=== PATIENT | female | born 1960 | race Caucasian/White ===

== ENCOUNTER → 2016-10-26 | Outpatient (CLI) | payer OTHER ==
--- NOTE | 2016-10-26 14:09 | RADIOLOGY REPORT (SQ) ---
EXAM DESCRIPTION: CT BONE LENGTH COMPLETED DATE/TIME: 10/26/2016 1:46 pm REASON FOR STUDY: LLD (Q72.819) Q72.819 CONGENITAL SHORTENING OF UNSPECIFIED LOWER LIMB COMPARISON: None. TECHNIQUE: CT scanogram of the bilateral lower extremities is performed including pelvis to ankles. Measurements of femur, tibia, and entire lower extremities performed by the radiologist and saved to PACS. All CT scanners at this facility use dose modulation, iterative reconstruction, and/or weight based d osing when appropriate to reduce radiation dose to as low as reasonably achievable (ALARA). [facility]: Dose Right [facility]: CareDose [facility]: Dose Right [facility]: Teradose 4D [facility]: Tumblr RADIATION DOSE: mGy. LIMITATIONS: None. FINDINGS: RIGHT: FEMUR: 40.8 cm. TIBIA: 33.4 cm. TOTAL RIGHT LOWER EXTREMITY LENGTH: 74.2 cm. LEFT: FEMUR: 42 cm. TIBIA: 33.3 cm. TOTAL LEFT LOWER EXTREMITY LENGTH: 75.3 cm. IMPRESSION: LEG LENGTH MEASUREMENTS DETAILED ABOVE. TECHNICAL DOCUMENTATION: JOB ID: [id number] Quality ID # [id number]: Final reports with documentation of one or more dose reduction techniques (e.g., Au tomated exposure control, adjustment of the mA and/or kV according to patient size, use of iterative reconstruction technique) 2010 [employer]- All Rights Reserved
== END ==
LOC: RAD 13:09
PROVIDERS: ATTEND Podiatrist Foot & Ankle Surgery
DX: Q72.819 Congenital shortening of unspecified lower limb (principal)
CPT/HCPCS: 77073

== ENCOUNTER → 2018-01-21 | Outpatient (CLI) | payer OTHER ==
--- NOTE | 2018-01-21 13:41 | RADIOLOGY REPORT (SQ) ---
EXAM DESCRIPTION: CT ABDOMEN ORAL CONTRAST ONLY COMPLETED DATE/TIME: 01/21/2018 11:52 am REASON FOR STUDY: INCISIONAL HERNIA WITHOUT OBSTRUCTION OR GANGRENE K43.2 INCISIONAL HERNIA WITHOUT OBSTRUCTION OR GANGRENE COMPARISON: 11/15/2015 TECHNIQUE: CT scan of the abdomen performed without intravenous contrast and with oral contrast. Im ages reviewed with lung, soft tissue, and bone windows. Reconstructed coronal and sagittal MPR image s reviewed. All images stored on PACS. All CT scanners at this facility use dose modulation, iterative reconstruction, and/or weight based d osing when appropriate to reduce radiation dose to as low as reasonably achievable (ALARA). [facility]: Dose Right [facility]: CareDose [facility]: Dose Right [facility]: Teradose 4D [facility]: Smart TASS RADIATION DOSE: CT Rad equipment meets quality standard of care and radiation dose reduction techniq ues were employed. CTDIvol: 24.2 mGy. DLP: 858 mGy-cm.mGy. LIMITATIONS: None. FINDINGS: LOWER CHEST: No significant findings. No nodules or infiltrates. NONCONTRASTED LIVER, SPLEEN, ADRENALS: Evaluation limited by lack of IV contrast. No identified sign ificant masses. PANCREAS: The pancreas is fatty replaced and atrophic. This is stable from prior study. GALLBLADDER: Surgically absent. RIGHT KIDNEY AND URETER: No suspicious masses. Assessment limited by lack of IV contrast. No signif icant calcifications. No hydronephrosis or hydroureter. LEFT KIDNEY AND URETER: No suspicious masses. Assessment limited by lack of IV contrast. No signifi cant calcifications. No hydronephrosis or hydroureter. AORTA AND RETROPERITONEUM: No aneurysm. No retroperitoneal masses or adenopathy. BOWEL AND PERITONEAL CAVITY: No obvious masses or inflammatory changes. No free fluid. APPENDIX: Normal. ABDOMINAL WALL: No abdominal wall hernias. BONES: No significant findings. OTHER: No other significant finding. IMPRESSION: NO SIGNIFICANT OR ACUTE ABDOMINAL PROCESS. TECHNICAL DOCUMENTATION: JOB ID: [id number] Quality ID # [id number]: Final reports with documentation of one or more dose reduction techniques (e.g., Au tomated exposure control, adjustment of the mA and/or kV according to patient size, use of iterative reconstruction technique) 2010 [employer]- All Rights Reserved Reading location - IP/workstation name: [email or web address]
== END ==
LOC: RAD 11:32
PROVIDERS: ATTEND Physician Assistant
DX: K43.2 Incisional hernia without obstruction or gangrene (principal)
CPT/HCPCS: 74150

== ENCOUNTER 2019-02-24 12:51 | Emergency (ER) | payer OTHER ==
[2019-02-24 13:17] VITALS: BP 155/103
[2019-02-24] MEDS ORDERED: MORPHINE SULFATE 10 MG/ML INJ IV ONE (13:17)
[2019-02-24] MEDS ORDERED: ONDANSETRON HCL INJ/PF 4 MG/2 ML SDV IV ONE (13:17)
[2019-02-24] MEDS ORDERED: NORMAL SALINE 1000 ML 1,000 ML IV ONE (13:17)
--- NOTE | 2019-02-24 13:20 | ER Document Report ---
ED Medical Screen (RME) - General Chief Complaint: Abdominal Pain Stated Complaint: ABDOMINAL PAIN Time Seen by Provider: 02/24/19 13:09 Primary Care Provider: MILAN HAQ DPM [Primary Care Provider] - Follow up as needed Notes: Patient is a 58-year-old female who presents emergency department with a chief complaint of abdominal pain. Her symptoms started about 3 days ago. She states that it comes in waves and feels like it is a twisting sensation. The pain is at her umbilicus area. Patient states that she feels like she has had a low- grade fever. Patient has had some vomiting and a small amount of diarrhea. Patient has history of hernia surgeries in the past. She also states that she has had multiple adhesions. Patient is a diabetic. Exam: Very tender mid abdomen. I have greeted and performed a rapid initial assessment of this patient. A comprehensive ED assessment and evaluation of the patient, analysis of test results and completion of medical decision making process will be conducted by an additional ED providers. TRAVEL OUTSIDE OF THE [place] IN LAST 30 DAYS: No - Related Data Allergies/Adverse Reactions: adhesive [Adhesive] Allergy (Verified 02/24/19 12:57) doxycycline [Doxycycline] Allergy (Verified 02/24/19 12:57) hydromorphone HCl [From Dilaudid] Allergy (Verified 02/24/19 12:57) latex [Latex] Allergy (Verified 02/24/19 12:57) vancomycin [Vancomycin] Allergy (Verified 02/24/19 12:57) Past Medical History Pulmonary Medical History: Reports: Hx Pneumonia Endocrine Medical History: Reports: Hx Diabetes Mellitus Type 2 Renal/ Medical History: Reports: Hx Ectopic , Hx Ovarian Cysts Malignancy Medical History: Reports: Hx Cervical Cancer GI Medical History: Reports: Hx Gastritis, Hx Gastroesophageal Reflux Disease, Hx Hiatal Hernia, Hx Colonoscopy, Hx Endoscopy Musculoskeltal Medical History: Reports Hx Musculoskeletal Deformity, Reports Hx Musculoskeletal Trauma Traumatic Medical History: Reports: Hx Fractures Past Surgical History: Reports: Hx Abdominal Surgery - , Hx Adenoidectomy, Hx Appendectomy - 1992, Hx Bowel Surgery, Hx Section, Hx Cholecystectomy - 2010, Hx Gynecologic Surgery - ovarian cyst removed, Hx Herniorrhaphy - Pt has had multiple hernias, Hx Hysterectomy, Hx Orthopedic Surgery - lttorn rotator cuff repair, ligament tear right elbow, Hx Tubal Ligation - Immunizations Immunizations up to date: Yes Hx Diphtheria, Pertussis, Tetanus Vaccination: Yes Physical Exam - Vital signs Vitals: Temp Pulse Resp BP Pulse Ox 97.5 F 92 18 155/103 H 100 02/24/19 13:13 02/24/19 13:13 02/24/19 13:13 02/24/19 13:13 02/24/19 13:13 Course - Vital Signs Vital signs: Temp Pulse Resp BP Pulse Ox 97.5 F 92 18 155/103 H 100 02/24/19 13:13 02/24/19 13:13 02/24/19 13:13 02/24/19 13:13 02/24/19 13:13 Doctor's Discharge - Discharge Referrals: MILAN HAQ DPM [Primary Care Provider] - Follow up as needed
[2019-02-24 14:05] LABS: APPEARANCE,URINE CLEAR; BILIRUBIN,URINE NEGATIVE (NEGATIVE); COLOR,URINE YELLOW; GLUCOSE, URINE NEGATIVE (NEGATIVE); KETONES,URINE NEGATIVE (NEGATIVE); PROTEIN,URINE 100 mg/dL (NEGATIVE); URINE SPECIFIC GRAVITY 1.017; UROBILINOGEN,URINE NEGATIVE mg/dL (<2.0)
[2019-02-24 14:11] LABS: ABSOLUTE EOSINOPHILS # (AUTO) 0.4 10^3/uL (0.0-0.6); ABSOLUTE LYMPHOCYTES (AUTO) 2.7 10^3/uL (0.5-4.7); ABSOLUTE MONOCYTES (AUTO) 0.5 10^3/uL (0.1-1.4); ABSOLUTE NEUT (AUTO) 8.4 10^3/uL (1.7-8.2); BASOPHILS % (AUTO) 0.4 % (0-2); EOSINOPHILS % (AUTO) 3.3 % (0-6); HEMATOCRIT 37.5 % (36.0-47.0); HEMOGLOBIN 12.4 g/dL (12.0-15.5); LYMPHOCYTES % (AUTO) 22.3 % (13-45); MEAN CORPUSCULAR HEMOGLOBIN 26.2 pg (27.0-33.4); MEAN CORPUSCULAR HGB CONC 33.2 g/dL (32.0-36.0); MEAN CORPUSCULAR VOLUME 79 fl (80-97); MONOCYTES % (AUTO) 4.3 % (3-13); PLATELET COUNT 248 10^3/uL (150-450); RED BLOOD COUNT 4.75 10^6/uL (3.72-5.28); RED CELL DISTRIBUTION WIDTH 16.7 % (11.5-14.0); SEGMENTED NEUTROPHILS % (AUTO) 69.7 % (42-78); TOTAL CELLS COUNTED % (AUTO) 100 %
--- NOTE | 2019-02-24 14:12 | ER Document Report ---
ED GI/ - General Chief Complaint: Abdominal Pain Stated Complaint: ABDOMINAL PAIN Time Seen by Provider: 02/24/19 13:09 Primary Care Provider: MILAN HAQ DPM [Primary Care Provider] - Follow up as needed Information source: Patient Notes: Ms. Mackey is a 68 yo F w/ PMH diabetes and 26 abdominal surgeries in the past 10 of which were for hernia repairs with previous mesh implantation, partial colectomy and previous wound VAC presenting to the ED for abdominal pain. Patient states the pain began 3 days ago she has had ongoing episodes of vomiting at least 5 episodes. Vomitus has been nonbloody nonbilious. She also endorses small episodes of defecation, last one being this morning. She is passing gas without issues. States the pain is periumbilical and along her midline incision. She denies any fevers or chills, chest pain, cough or shortness of breath she also endorses decreased p.o. intake and dry heaving with water. TRAVEL OUTSIDE OF THE [place] IN LAST 30 DAYS: No - Related Data Allergies/Adverse Reactions: adhesive [Adhesive] Allergy (Verified 02/24/19 12:57) doxycycline [Doxycycline] Allergy (Verified 02/24/19 12:57) hydromorphone HCl [From Dilaudid] Allergy (Verified 02/24/19 12:57) latex [Latex] Allergy (Verified 02/24/19 12:57) vancomycin [Vancomycin] Allergy (Verified 02/24/19 12:57) Past Medical History - Social History Smoking Status: Former Smoker Family History: Arthritis, CAD, CVA, DM, Hyperlipidemia, Hypertension, Malignancy, Thyroid Disfunction Patient has suicidal ideation: No Patient has homicidal ideation: No Pulmonary Medical History: Reports: Hx Pneumonia Endocrine Medical History: Reports: Hx Diabetes Mellitus Type 2 Renal/ Medical History: Reports: Hx Ectopic , Hx Ovarian Cysts Malignancy Medical History: Reports: Hx Cervical Cancer GI Medical History: Reports: Hx Gastritis, Hx Gastroesophageal Reflux Disease, Hx Hiatal Hernia, Hx Colonoscopy, Hx Endoscopy Musculoskeletal Medical History: Reports Hx Musculoskeletal Deformity, Reports Hx Musculoskeletal Trauma Traumatic Medical History: Reports: Hx Fractures Past Surgical History: Reports: Hx Abdominal Surgery - , Hx Adenoidectomy, Hx Appendectomy - 1992, Hx Bowel Surgery, Hx Section, Hx Cholecystectomy - 2010, Hx Gynecologic Surgery - ovarian cyst removed, Hx Herniorrhaphy - Pt has had multiple hernias, Hx Hysterectomy, Hx Orthopedic Surgery - lttorn rotator cuff repair, ligament tear right elbow, Hx Tubal Ligation - Immunizations Immunizations up to date: Yes Hx Diphtheria, Pertussis, Tetanus Vaccination: Yes Review of Systems - Review of Systems Constitutional: See HPI EENT: No symptoms reported Cardiovascular: No symptoms reported Respiratory: No symptoms reported Gastrointestinal: See HPI Genitourinary: No symptoms reported Female Genitourinary: No symptoms reported Musculoskeletal: No symptoms reported Skin: No symptoms reported Hematologic/Lymphatic: No symptoms reported Neurological/Psychological: No symptoms reported Physical Exam - Vital signs Vitals: Temp Pulse Resp BP Pulse Ox 97.5 F 92 18 155/103 H 100 02/24/19 13:13 02/24/19 13:13 02/24/19 13:13 02/24/19 13:13 02/24/19 13:13 Interpretation: Hypertensive - General General appearance: Appears well, Alert - HEENT Head: Normocephalic, Atraumatic Eyes: Normal Pupils: PERRL - Respiratory Respiratory status: No respiratory distress Chest status: Nontender Breath sounds: Normal Chest palpation: Normal - Cardiovascular Rhythm: Regular Heart sounds: Normal auscultation Murmur: No - Abdominal Inspection: Normal Distension: No distension Bowel sounds: Normal Tenderness: Tender - Diffuse Organomegaly: No organomegaly - Back Back: Normal, Nontender - Extremities General upper extremity: Normal inspection, Nontender, Normal color, Normal ROM, Normal temperature General lower extremity: Normal inspection, Nontender, Normal color, Normal ROM, Normal temperature, Normal weight bearing. No: Shasha's sign - Neurological Neuro grossly intact: Yes Cognition: Normal Orientation: AAOx4 [place] Coma Scale Eye Opening: Spontaneous [place] Coma Scale Verbal: Oriented Mika Coma Scale Motor: Obeys Commands [place] Coma Scale Total: 15 Speech: Normal Motor strength normal: LUE, RUE, LLE, RLE Sensory: Normal - Psychological Associated symptoms: Normal affect, Normal mood - Skin Skin Temperature: Warm Skin Moisture: Dry Skin Color: Normal Course - Re-evaluation Re-evalutation: Patient is generally well-appearing and nontoxic. Initial vitals notable for elevated blood pressure. Differential diagnosis includes diverticulitis, diverticulosis, bowel obstruction, obstipation, constipation, ventral hernia 02/24/19 14:00 Given patient's extensive abdominal surgical history high risk for obstruction. Labs notable for mild leukocytosis without significant left shift. UA and CMP within normal limits. 02/24/19 17:34 Patient for any acute significant process. There is mild diverticulosis. There is an anterior dilated loop of bowel which is consistent with patient having a known ventral hernia. There is complete fatty replacement of the pancreas although pancreatic enzymes within normal limits. Given return precautions and instructed to follow-up with her primary care doctor as needed. - Vital Signs Vital signs: Temp Pulse Resp BP Pulse Ox 97.5 F 92 18 155/103 H 100 02/24/19 13:13 02/24/19 13:13 02/24/19 13:13 02/24/19 13:13 02/24/19 13:13 - Laboratory Result Diagrams: 02/24/19 14:00 02/24/19 14:00 Laboratory results interpreted by me: 02/24/19 02/24/19 02/24/19 13:26 14:00 14:00 WBC 12.0 H MCV 79 L MCH 26.2 L RDW 16.7 H Absolute Neuts (auto) 8.4 H Glucose 165 H POC Glucose AST 41 H Lipase 16.1 L Urine Protein 100 H 02/24/19 18:38 WBC MCV MCH RDW Absolute Neuts (auto) Glucose POC Glucose 118 H AST Lipase Urine Protein Discharge - Discharge Clinical Impression: Abdominal pain Condition: Good Disposition: HOME, SELF-CARE Instructions: Abdominal Pain ([facility]), Antispasmodics ([facility]) Additional Instructions: I would recommend that you stick to a liquid and bland food diet. Follow-up with your primary care doctor as needed. If you are having incomplete bowel movements, I do recommend to use a senna plus. You can also use the Bentyl for pain control. If you are unable to keep down food or drink, develop a fever, or any other concerning symptoms, you can return to the ED for further evaluation. Prescriptions: Dicyclomine HCl [Bentyl 10 mg Capsule] 1 cap PO TID #30 cap Sennosides/Docusate Sodium [Senna Plus 8.6-50 mg Softgel] 1 each PO DAILY #30 capsule Referrals: MILAN HAQ DPM [Primary Care Provider] - Follow up as needed
[2019-02-24 14:43] LABS: ALBUMIN 4.6 g/dL (3.5-5.0); ALKALINE PHOSPHATASE 105 U/L (38-126); ANION GAP 14 (5-19); ASPARTATE AMINO TRANSFERASE 41 U/L (14-36); BILIRUBIN,DIRECT 0.2 mg/dL (0.0-0.4); BILIRUBIN,TOTAL 0.5 mg/dL (0.2-1.3); BLOOD UREA NITROGEN 14 mg/dL (7-20); CARBON DIOXIDE 24 mmol/L (22-30); CHLORIDE 101 mmol/L (98-107); GLUCOSE 165 mg/dL (75-110); POTASSIUM 4.3 mmol/L (3.6-5.0); TOTAL PROTEIN 7.9 g/dL (6.3-8.2)
--- NOTE | 2019-02-24 19:08 | RADIOLOGY REPORT (SQ) ---
EXAM DESCRIPTION: CT ABD/PELVIS WITH IV ORAL COMPLETED DATE/TIME: 02/24/2019 5:34 pm REASON FOR STUDY: abd pain, vomiting COMPARISON: 11/15/2015 TECHNIQUE: CT scan of the abdomen and pelvis performed using helical scanning technique with dynamic intravenous contrast injection. No oral contrast. Images reviewed with lung, soft tissue, and bone windows. Reconstructed coronal and sagittal MPR images reviewed. Delayed images for evaluation of the urinary system also acquired. All images stored on PACS. All CT scanners at this facility use dose modulation, iterative reconstruction, and/or weight based d osing when appropriate to reduce radiation dose to as low as reasonably achievable (ALARA). [facility]: Dose Right [facility]: CareDose [facility]: Dose Right [facility]: Teradose 4D [facility]: YaData CONTRAST TYPE AND DOSE: contrast/concentration: Isovue mg/ml; Total Contrast Delivered: 100.0 ml; T otal Saline Delivered: 23.6 ml RENAL FUNCTION: BUN 14 creatinine 0.78 RADIATION DOSE: CT Rad equipment meets quality standard of care and radiation dose reduction techniq ues were employed. CTDIvol: 19.7 - 20.9 mGy. DLP: 2217 mGy-cm.. LIMITATIONS: None. FINDINGS: LOWER CHEST: No significant findings. No nodules or infiltrates. LIVER: Hypoattenuating. No masses. SPLEEN: Normal size. No focal lesions. PANCREAS: There is almost complete fatty replacement of the pancreas. GALLBLADDER: Surgically absent. ADRENAL GLANDS: No significant masses or asymmetry. RIGHT KIDNEY AND URETER: No solid masses. No significant calcifications. No hydronephrosis or hyd roureter. LEFT KIDNEY AND URETER: No solid masses. No significant calcifications. No hydronephrosis or hydr oureter. AORTA AND VESSELS: No aneurysm. No dissection. Renal arteries, SMA, celiac without stenosis. RETROPERITONEUM: No retroperitoneal adenopathy, hemorrhage or masses. BOWEL AND PERITONEAL CAVITY: There is what appears to be a dilated loop of bowel in the mid abdomen a nteriorly. There is contrast present. The overall appearance of the small bowel does not suggest rohan wel obstruction. No bowel mass is seen. There is mild sigmoid diverticulosis with no associated inf lammation. APPENDIX: Surgically absent. PELVIS: No mass. No free fluid. Normal bladder. ABDOMINAL WALL: No masses. No hernias. BONES: No significant or acute findings. OTHER: No other significant finding. IMPRESSION: 1. There is what appears to be a dilated loop of small bowel in the mid abdomen anterio rly. This contains contrast. The remainder of the small bowel does not appear to be obstructed. 2. Mild diverticulosis coli. 3. Almost complete fatty replacement of the pancreas. 4. Hepatic steatosis. TECHNICAL DOCUMENTATION: JOB ID: [id number] Quality ID # [id number]: Final reports with documentation of one or more dose reduction techniques (e.g., Au tomated exposure control, adjustment of the mA and/or kV according to patient size, use of iterative reconstruction technique) 2010 [employer]- All Rights Reserved Reading location - IP/workstation name: [email or web address]
== END 2019-02-24 19:31 | disposition home or self-care (01) ==
LOC: ER 12:51
DX: R10.33 Periumbilical pain (principal); R10.817 Generalized abdominal tenderness; K57.30 Diverticulosis of large intestine without perforation or abscess without bleeding; K43.9 Ventral hernia without obstruction or gangrene; D72.829 Elevated white blood cell count, unspecified; E11.9 Type 2 diabetes mellitus without complications; Z98.890 Other specified postprocedural states; Z87.891 Personal history of nicotine dependence; Z85.41 Personal history of malignant neoplasm of cervix uteri; Z90.49 Acquired absence of other specified parts of digestive tract; Z90.710 Acquired absence of both cervix and uterus; Z91.048 Other nonmedicinal substance allergy status; Z88.1 Allergy status to other antibiotic agents; Z88.5 Allergy status to narcotic agent; Z88.6 Allergy status to analgesic agent; Z91.040 Latex allergy status
CPT/HCPCS: 99284; 36415; 82962; 83690; 85025; 80053; 81001; 74177; J2270; J2405; J7030